=== PATIENT | female | born 1980 | race Two or more races ===

== ENCOUNTER 2018-10-31 03:46 | Outpatient (CLI) | payer OTHER ==
[2018-10-31] MEDS ORDERED: PRENATABS RX T1 EACH PO (04:04)
== END 2018-10-31 10:14 | disposition home or self-care (01) ==
LOC: OBS/DEL 03:46
DX: O60.02 Preterm labor without delivery, second trimester (principal); Z34.82 Encounter for supervision of other normal pregnancy, second trimester

== ENCOUNTER 2019-01-20 08:16 | Inpatient (IN) | payer OTHER ==
[~2019-01-20] VITALS: Ht 167.6 cm; Wt 68.9 kg
[~2019-01-20 08:16] MED LIST: PRENATABS RX T1 EACH PO
== END 2019-01-22 12:19 | disposition home or self-care (01) | DRG 807 ==
LOC: LDR 08:16 → OB/GYN 17:34
PROVIDERS: ADMIT Obstetrics & Gynecology
PROC: 10E0XZZ Delivery of Products of Conception, External Approach (ICD-10-PCS; principal; 2019-01-20)
PROC: 3E033VJ Introduction of Other Hormone into Peripheral Vein, Percutaneous Approach (ICD-10-PCS; 2019-01-20)
PROC: 4A1HXCZ Monitoring of Products of Conception, Cardiac Rate, External Approach (ICD-10-PCS; 2019-01-20)
DX: O80 Encounter for full-term uncomplicated delivery (principal); Z37.0 Single live birth; Z3A.39 39 weeks gestation of pregnancy